=== PATIENT | male | born 1975 | race Caucasian/White ===

== ENCOUNTER 2024-10-18 19:45 | Emergency (ER) | payer MEDICAID, OTHER ==
[~2024-10-18] VITALS: Ht 167.6 cm; Wt 81.6 kg
[2024-10-18] MEDS ORDERED: IBUP-1953 PO (20:43)
[2024-10-18] MEDS ORDERED: BENZ1LOZ58 PO (20:43)
[2024-10-18] MEDS ORDERED: ACET325C7 PO (20:43)
[2024-10-18] MEDS ORDERED: BENZ-13 PO (20:43)
[2024-10-18] MEDS ORDERED: KETOROLAC TROMETHAMINE INJ 30 MG/ML VIAL ONE (20:59)
[2024-10-18] MEDS ORDERED: ACETAMINOPHEN 325 MG TABLET ONE (21:00)
[2024-10-18] MEDS: KETOROLAC TROMETHAMINE INJ 30 MG/ML VIAL IM ONE (21:08)
[2024-10-18] MEDS: ACETAMINOPHEN 325 MG TABLET PO ONE (21:08)
[2024-10-18 21:20] VITALS: BP 149/92; TEMP 98.8; O2SAT 98
== END 2024-10-18 21:34 | disposition home or self-care (01) ==
LOC: ER 19:47
DX: J06.9 Acute upper respiratory infection, unspecified (principal); I10 Essential (primary) hypertension; Z59.00 Homelessness unspecified
CPT/HCPCS: 99283; 96372; J1885